=== PATIENT | male | born 1945 | race Caucasian/White ===

== ENCOUNTER 2016-11-28 12:06 | Inpatient (IN) ==
[2016-11-28] MEDS ORDERED: Acetaminophen 325 MG TABLET PO PRN (14:58)
[2016-11-28] MEDS ORDERED: *HR* Promethazine 25 MG/ML VIAL IVP PRN (15:21)
[2016-11-28] MEDS ORDERED: Ondansetron 4 MG/2 ML VIAL IVP PRN (15:21)
[2016-11-28] MEDS ORDERED: *HR* OxyCODONE/APAP 5/325 TABLET PO PRN (15:21)
[2016-11-28] MEDS ORDERED: 0.9 % Sodium Chloride 1,000 ML IVC SCH (15:30)
[2016-11-28] MEDS ORDERED: Pantoprazole 40 MG VIAL IVP SCH (15:30)
--- NOTE | 2016-11-28 16:21 | General Surg History&Physical ---
<Josie Almodovar - Last Filed: 11/28/16 17:10> Date of Encounter: 11/28/16 Time of Encounter: 16:19 Assessment and Plan (1) Ascending cholangitis Current Visit: Yes Status: Acute Patient presents with signs and symptoms of acute cholecystitis with ascending cholangitis with clinical findings correlated to imaging. On exam: Patient is diaphoretic and restless in the bed. Abdomen is diffusely tender to palpation. Laboratory results from [facility] reveal leukocytosis with left shift. Elevated liver function enzymes suggested of liver and biliary injury. Total bilirubin of 2.6 Direct bilirubin 1.9 Indirect bilirubin 0.7 AST 624 ALT [address] scan of the abdomen 11/28/16 Impression: Cholecystitis with at least moderate distention of the gallbladder. The pericholecystic right upper quadrant mesenteric fat is ill defined. Correlation for acute Cholecystitis recommended. Nothing by mouth IV fluids at [75] mL per hour IV antibiotics Mefoxin 2 g every 8 hours Supportive care and pain control Incentive spirometer every 1 hour while awake PPI therapy: Patoprazole 40 mg IVP daily Preoperative protocol please give patient's metoprolol by mouth at 6 AM. Laproscopic cholecystectomy with ineraoperative cholangiogram and possible open common bile duct exploration for common bile duct stone in the morning. Risks, benefits, alternatives, expected outcomes reviewed with the patient is agreement to proceed to the operating room with for Laproscopic cholecystectomy with ineraoperative cholangiogram and possible open common bile duct exploration for common bile duct stone in the next 24 hours. Verbal and written consent was obtained. Consent Form was signed, dated and placed in the chart. The assessment and plan as outlined above was discussed with the patient and/or family members who expressed understanding and agreement. All questions were answered. (2) Acute cholecystitis Current Visit: Yes Status: Acute The assessment and plan as outlined above was discussed with the patient and/or family members who expressed understanding and agreement. All questions were answered. (3) Elevated liver enzymes Current Visit: Yes Status: Acute The assessment and plan as outlined above was discussed with the patient and/or family members who expressed understanding and agreement. All questions were answered. History of Present Illness Chief complaint: abdominal pain HPI: Mr. 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 On arrival to the floor patient had a temperature of 102.1. Acetaminophen 650 was given for fever. Patient describes sudden onset of sharp stabbing pain that woke him from sleep around 1:30 AM this morning. Pain is described as midepigastric with radiation to the periumbilical region and persisted as cramping with intermittent sharp stabbing pains at 7-9 out of 10 pain. Patient tried changing positions sitting up in order to alleviate his symptoms however they persisted. Patient then tried drinking a few sips of coffee however he states that he developed a coffee and food aversion stating no appetite. Associated symptoms include bloating, gas, belching, nausea, vomiting 2-3 times nonbloody nonbilious, fever , chills and shaking. Patient states no previous episodes in the past. Last bowel movement occurred at 2 AM this morning and is described as normal stool bulk and volume for patient without blood or pus. Last meal: 5:55 PM yesterday evening Past surgical histories: Gastric bypass 1993 Right ankle ORIF 2016 Vasectomy 1982 History with anesthesia is that after surgical intervention when patient is recovering postoperatively he develops episodes of hypotension for which he states he requires caffeine just to increase his heart rate a little bit. Social history: Patient is . 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 Patient was in the [employer] and was stationed in [employer]. Past Med Surg Social Fam HX - Past Medical History Medical history: asthma, diabetes, GERD, hyperlipidemia, hypertension, kidney stones, other Psychiatric history: no psych history - Past Surgical History Surgical History: other - Social History Smoking Status: Never smoker Smokeless Tobacco Status: No Alcohol use: rarely Drug use: none - Family History Mother Name: Angelina Marks Age: 55 Family Member Ethnicity: Non- Living Status: Age at : 55 Cause of : Cancer Hx Family Cardiac Disorders: Yes Hx Family Respiratory Disorders: Yes Hx Family Cancer: Yes Hx Family GI Disorders: No Hx Family Genitourinary Disorders: Yes Hx Family Endocrine Disorder: No Hx Family Musculoskeletal Disorders: No Hx Family Neuromuscular Disorders: No Hx Family Neurologic Disorders: No Hx Family HEENT Disorders: No Hx Family Autoimmune Disorders: No Hx Family Reproductive Disorders: No Hx Family Psychosocial Disorders: No Hx Family Medical Disorders: No Medications and Allergies Albuterol Sulfate [Albuterol Inhaler] 2 puff PO Q4H PRN 05/27/16 [History] Doxazosin Mesylate 8 mg PO HS 05/27/16 [History] Exenatide [Byetta] 5 mcg SQ BID 05/27/16 [History] Furosemide 80 mg PO DAILY 05/27/16 [History] Losartan Potassium 100 mg PO DAILY 05/27/16 [History] Metformin HCl [Fortamet] 1,000 mg PO BID 05/27/16 [History] Metoprolol Succinate [Toprol Xl] 100 mg PO BID 05/27/16 [History] NIFEdipine [Nifedipine Xl] 30 mg PO BID 05/27/16 [History] Potassium Chloride [K-Tab ER] 20 meq PO BID 05/27/16 [History] Pravastatin Sodium [Pravachol] 40 mg PO HS 05/27/16 [History] Tamsulosin [Flomax] 0.4 mg PO HS 05/27/16 [History] Tizanidine HCl 4 mg PO BID PRN 05/27/16 [History] cloNIDine HCl [Clonidine HCl] 0.1 mg PO BID 05/27/16 [History] glipiZIDE [Glipizide] 10 mg PO BID 05/27/16 [History] Allergies morphine Allergy (Verified 05/27/16 14:08) Itching Penicillins Adverse Reaction (Verified 05/27/16 14:08) Rash Review of Systems All systems PM: A 10-system review of systems was performed and is negative for pertinent findings except as documented above in the HPI. - Constitutional anorexia, chills, excessive sweating, fatigue, fever(s), lethargy, snoring, stops breathing during sleep, no headache(s) - EENT Nose, mouth and throat: no dysphagia, no epistaxis, no throat swelling, no tongue swelling - Cardiovascular diaphoresis, no chest pain, no claudication, no dyspnea, no palpitations - Respiratory wheezing (Asthma and allergies ), no dyspnea, no hemoptysis - Gastrointestinal abdominal pain, belching, bloating, cramping, nausea, vomiting, no coffee ground emesis, no constipation, no diarrhea, no dyspepsia, no dysphagia, no heartburn, no hematemesis, no hematochezia, no melena - Genitourinary urinary hesitancy - Integumentary no pruritus, no rash, no sores, no unusual bruising, no wounds, no jaundice - Neurological no confusion, no disequilibrium, no dizziness, no numbness, no syncope General Surgery Exam Initial Vital Signs Temp Pulse Resp BP Pulse Ox 101.0 F H 91 18 145/73 92 11/28/16 15:08 11/28/16 15:08 11/28/16 15:08 11/28/16 15:08 11/28/16 15:08 - General physical appearance well developed, well nourished, no distress, moderate pain, obese - Eyes PERRL, normal ocular movement - ENT normal mucosa, atraumatic, normocephalic, CN 2-12 grossly intact - Neck trachea midline - Respiratory normal respiratory effort, clear to auscultation - Cardiovascular Cardiovascular exam: Present: RRR, no murmurs/rubs/gallops. Absent: JVD - Abdomen Abdomen general surgery: Present: bowel sounds present, soft, tender - Integumentary Integumentary general surgery: Present: warm and dry, no abnormal pigmentation, diaphoresis - Neurologic Present: CN 2-12 grossly intact, normal coordination, normal sensation - Musculoskeletal Present: normal gait, normal posture - Psychiatric Psychiatric general surgery: Present: A&Ox3, speech is normal, memory intact Results - Labs All other labs normal. - Imaging CT scan - abdomen: report reviewed, image reviewed CT scan - pelvis: report reviewed, image reviewed <Hussein Lowery - Last Filed: 11/29/16 06:32> Date of Encounter: 11/28/16 History of Present Illness HPI: Mr. Marks is a 71 year old male Review of Systems All systems PM: A 10-system review of systems was performed and is negative for pertinent findings except as documented above in the HPI. General Surgery Exam Initial Vital Signs Temp Pulse Resp BP Pulse Ox 101.0 F H 91 18 145/73 92 11/28/16 15:08 11/28/16 15:08 11/28/16 15:08 11/28/16 15:08 11/28/16 15:08 Results - Labs All other labs normal. - Attending Attestation I examined this patient and my medical decision-making was reviewed with the [employer]INE SETTER/PA/Advanced Practice Nurse/Resident Physician. I agree with the documented findings, disposition and treatment plan as described except to the extent set forth below. The patient is seen and evaluated in the emergency department. He has elevated liver function tests, leukocytosis, and jaundice. Ultrasound demonstrates cholelithiasis. Clinical presentation is consistent with a sending cholangitis. He has previously had gastric bypass surgery and is not a candidate ERCP. We will plan antibiotic therapy and treatment of his febrile episodes followed by laparoscopic cholecystectomy and intraoperative cholangiogram. If the cholangiogram demonstrated common bile duct stones open common bile duct exploration will be indicated. Hussein Lowery MD FACS
[2016-11-28] MEDS ORDERED: Dextrose Gel 15 GM PO PRN ×2 (16:31)
[2016-11-28] MEDS ORDERED: D5% in Water 1,000 ML IVC PRN (16:31)
[2016-11-28] MEDS ORDERED: *HR* Dextrose 50 % in Water (Syg) 50 ML SYRINGE IVP PRN (16:31)
[2016-11-28] MEDS ORDERED: Fluticasone Propionate Nasal 50 MCG/SPRAY BOTTLE NS SCH (16:45)
[2016-11-28] MEDS ORDERED: *HR* HYDROmorphone 2 MG/ML SYRINGE IVP PRN (17:31)
[2016-11-28] MEDS: cefOXitin 2,000 MG in D5% in Water (Mini-Bag+) 100 ML IVPB SCH (17:44)
[2016-11-28] MEDS ORDERED: Piperacillin/Tazobactam 3.375 GM in D5% in Water (Mini-Bag+) 100 ML IVPB SCH (18:00)
[2016-11-29] MEDS: cefOXitin 2,000 MG in D5% in Water (Mini-Bag+) 100 ML IVPB SCH ×3 (00:10→23:12)
[2016-11-29] MEDS ORDERED: Metoprolol 100 MG TABLET PO ONE (06:00)
[2016-11-29 06:50] LABS: Alanine Aminotransferase 238 Units/L (0-55); Albumin/Globulin Ratio 0.9 (1.1-2.2); Alkaline Phosphatase 203 Units/L (38-126); Aspartate Amino Transferase 194 Units/L (5-34); BUN/Creatinine Ratio 13 (6-26); Bilirubin,Direct 3.3 mg/dL (0.0-0.5); Bilirubin,Indirect 1.2 mg/dL (0.0-1.2); Bilirubin,Total 4.5 mg/dL (0.2-1.2); Blood Urea Nitrogen 13 mg/dL (8-26); Calcium 8.7 mg/dL (8.6-10.8); Carbon Dioxide 25 mEq/L (19-29); Chloride 106 mEq/L (98-109); Globulin 3.4 g/dL (2.4-3.5); Glucose 142 mg/dL (70-99); Osmolality,Calculated 293 (280-300); Potassium 3.3 mEq/L (3.5-4.5); Sodium 140 mEq/L (136-145); Total Protein 6.4 g/dL (6.0-8.3); eGFR For African Americans > 60 (> 60); eGFR For Non-African Americans > 60 (> 60)
[2016-11-29 07:06] LABS: Basophils % 0.1 %; Eosinophils # 0.1 K/mcL (0.0-0.6); Eosinophils % 0.6 %; Hematocrit 37.9 % (37.5-50.1); Hemoglobin 12.2 g/dL (12.9-16.9); Immature Granulocytes % 0.4 % (0-4); Lymphocytes # 1.2 K/mcL (0.6-4.6); Lymphocytes % 9.1 %; Mean Corpuscular HGB Conc 32.2 g/dL (31.6-35.5); Mean Corpuscular Hemoglobin 28.2 pg (28.0-33.3); Mean Corpuscular Volume 87.7 fL (83.0-100.0); Mean Platelet Volume 10.3 fL (9.4-12.4); Monocytes # 1.1 K/mcL (0.0-1.3); Monocytes % 8.2 %; Neutrophils # 10.8 K/mcL (1.6-8.9); Platelet Count 233 K/mcL (140-400); Red Blood Count 4.32 M/mcL (4.19-5.50); Red Cell Distribution Width 13.9 % (11.5-14.5); Segmented Neutrophils % 81.6 %
[2016-11-29] MEDS ORDERED: *HR* Phenylephrine 10 MG/ML VIAL ONE (07:22)
[2016-11-29] MEDS ORDERED: *HR* Succinylcholine 200 MG/10 ML VIAL IVP ONE ×2 (07:22→07:50)
[2016-11-29] MEDS ORDERED: Propofol 500 MG/50 ML INFUS..BTL ONE (07:22)
[2016-11-29] MEDS ORDERED: Lidocaine -MPF 2% 2 ML VIAL ONE (07:22)
[2016-11-29] MEDS ORDERED: *HR* FentaNYL (PF) 100 MCG/2 ML VIAL ONE (07:26)
[2016-11-29] MEDS ORDERED: Insulin LISPRO 300 UNITS/3 ML VIAL SQ SCH (07:30)
--- NOTE | 2016-11-29 07:33 | Anesthesia Evaluation PreOp ---
Date of Encounter: 11/29/16 Time of Encounter: 07:31 - Past History Planned Operation: Lap dave with cholangiogram Cardiac History: HTN, Hyperlipidemia Pulmonary History: Asthma, COPD, LEX Dx Other Medical History: Renal (renal stones), Diabetes Type II, GERD Alcohol Use: rarely Drug use: none Medications and Allergies Albuterol Sulfate [Albuterol Inhaler] 2 puff PO Q4H PRN 05/27/16 [History] Doxazosin Mesylate 8 mg PO HS 05/27/16 [History] Exenatide [Byetta] 5 mcg SQ BID 05/27/16 [History] Furosemide 80 mg PO DAILY 05/27/16 [History] Losartan Potassium 100 mg PO DAILY 05/27/16 [History] Metformin HCl [Fortamet] 1,000 mg PO BID 05/27/16 [History] Metoprolol Succinate [Toprol Xl] 100 mg PO BID 05/27/16 [History] NIFEdipine [Nifedipine Xl] 30 mg PO BID 05/27/16 [History] Potassium Chloride [K-Tab ER] 20 meq PO BID 05/27/16 [History] Pravastatin Sodium [Pravachol] 40 mg PO HS 05/27/16 [History] Tamsulosin [Flomax] 0.4 mg PO HS 05/27/16 [History] Tizanidine HCl 4 mg PO BID PRN 05/27/16 [History] cloNIDine HCl [Clonidine HCl] 0.1 mg PO BID 05/27/16 [History] glipiZIDE [Glipizide] 10 mg PO BID 05/27/16 [History] Allergies morphine Allergy (Verified 05/27/16 14:08) Itching Penicillins Adverse Reaction (Verified 05/27/16 14:08) Rash Anesthesia Results - Labs 11/29/16 05:41 11/29/16 05:41 - Imaging EKG: report reviewed, image reviewed (SR w first degree AVB, inferior DE probably old) Additional studies: TTE: LVEF 65% mild AR mild MR Anesthesia Exam Last Vital Signs Temp 97.8 F 11/29/16 04:04 Pulse 67 11/29/16 04:04 Resp 14 11/29/16 04:04 BP 159/79 11/29/16 04:04 Pulse Ox 93 11/29/16 04:04 Weight: 116 kg NPO (# of Hours): >> 8 hrs - HEENT Pupil (Motor): Pupils equal, EOMI Mallampati: I Teeth: Normal Oral Opening: Greater than 3 - MANUFACTURING MECHANIC LOC: Oriented MANUFACTURING MECHANIC Motor: Normal RUE, Normal LUE, Normal RLE, Normal LLE, Normal Face - Cardiac Rhythm: Regular Murmur: None - Pulmonary Breath Sounds: bilateral Clear Respiratory Effort: Symmetrical Anesthesia Assess/Plan ASA Score: 3 Modified Ruth Scale for Level of Consciousness: Cooperative, oriented, and tranquil Anesthetic Plan: General Monitoring Plan: Standard Monitors Recovery Plan: PACU
[2016-11-29] MEDS ORDERED: CefOXitin 2,000 MG VIAL IVPB ONE ×2 (07:50→08:57)
[2016-11-29] MEDS ORDERED: *HR* Rocuronium Bromide 50 MG/5 ML VIAL ONE (08:09)
[2016-11-29] MEDS ORDERED: EPHEDrine 50 MG/ML VIAL ONE (08:15)
[2016-11-29] MEDS ORDERED: Neostigmine Methylsulfate 3 MG/3 ML SYRINGE ONE (08:16)
[2016-11-29] MEDS ORDERED: Ondansetron 4 MG/2 ML VIAL ONE (08:23)
[2016-11-29] MEDS ORDERED: Dexamethasone 4 MG/ML VIAL ONE (08:23)
[2016-11-29] MEDS ORDERED: Ketorolac 30 MG/ML VIAL ONE (08:26)
[2016-11-29] MEDS ORDERED: *HR* Promethazine 25 MG/ML VIAL IVP PRN ×2 (08:29→10:33)
[2016-11-29] MEDS ORDERED: *HR* HYDROmorphone 2 MG/ML SYRINGE ONE ×2 (08:45→10:04)
[2016-11-29] MEDS ORDERED: Piperacillin/Tazobactam 3.375 GM in D5% in Water (Mini-Bag+) 100 ML IVPB ONE (09:00)
--- NOTE | 2016-11-29 09:55 | Operative Note ---
Date of procedure: 11/29/16 Pre-op diagnosis: Ascending cholangitis, choledocholithiasis, cholelithiasis Post-op diagnosis: same Procedure: #1 opened, bile duct exploration #2 laparoscopic cholecystectomy and intraoperative cholangiogram Anesthesia: ONESIMOA Surgeon: Hussein Lowery Estimated blood loss (cc): 50 Specimen: #1 gallbladder and contents #2 choledocholithiasis Condition: stable Disposition: PACU Procedure in Detail: Operative procedure after informed consent and appropriate patient identification timeout the patient's take major operating suite and placed supine position given adequate general endotracheal anesthesia the abdomen is prepped and draped in sterile fashion utilizing ChloraPrep standard draping techniques timeout was taken patient is identified. I made a vertical midline incision below the umbilicus dissected down to level of fascia there are 2 traction stitches placed in the abdominal cavity was entered visually. A Flores trocar was placed in the abdomen and the abdomen was insufflated to 15 mmHg pressure CO2 the gallbladder was visualized. A placement 11 port in the subxiphoid area and 25 mm ports in the subcostal area. The gallbladder was grasped and elevated. A variety of blunt and sharp dissection techniques were used to isolate the cystic duct and cystic artery. The cystic artery was controlled with 2 surgical clips proximally and one distally and it was divided I placed a surgical clip on the neck the gallbladder and obtained an intraoperative cholangiogram using 10 mL of Isovue. Intraoperative cholangiogram demonstrated no flow into the duodenum. On magnified views I could see the shoulder of an impacted stone. Because of his previous gastric bypass surgery ERCP is not an option. We made a decision to perform open common bile duct exploration The cholangiocatheter was removed and the cystic duct was controlled with 2 surgical clips proximally and was divided the gallbladder was removed from the gallbladder fossae using electrocautery. Once the gallbladder was removed the patient was converted to open. I made a subcostal incision and entered the abdomen. The gallbladder was removed and I dissected the side of the common bile duct. I then performed, maneuver. Once [place] maneuver was performed and I could get my hand behind the head of the pancreas I opened the common bile duct #11 blade and extended this with Campos scissors. I was unable to reach the ampulla with the stone forceps. I used a small dilator and this passed easily into the duodenum. When I morris the dilator back a stone was recovered from the distal duct. This is consistent with an impacted stone. The next size Dilator was used and this passed easily into the duodenum. There were no other stones. I fashioned a #16 T-tube which was placed in the common bile duct. The choledochotomy was then closed with interrupted 5-0 Prolene. This gave an excellent technical result. The T-tube was exited from the right lateral abdomen and I placed a #10 Onofre-Fong drain. The abdomen was closed with looped 0 PDS on the posterior fascia and looped 0 PDS on the anterior fascia. Skin was closed with interrupted Vicryl and skin clips. He tolerated the procedure well.
[2016-11-29] MEDS: *HR* HYDROmorphone (PF) 1 MG/ML SYRINGE IVP PRN ×4 (10:05→10:20)
[2016-11-29] MEDS ORDERED: Ondansetron 4 MG/2 ML VIAL IVP PRN (10:33)
[2016-11-29] MEDS ORDERED: Dextrose Gel 15 GM PO PRN ×2 (10:33)
[2016-11-29] MEDS ORDERED: D5% in Water 1,000 ML IVC PRN (10:33)
[2016-11-29] MEDS ORDERED: *HR* Dextrose 50 % in Water (Syg) 50 ML SYRINGE IVP PRN (10:33)
[2016-11-29] MEDS ORDERED: Acetaminophen 325 MG TABLET PO PRN (10:33)
--- NOTE | 2016-11-29 10:33 | Anesthesia Evaluation Post Op ---
Date of Encounter: 11/29/16 Time of Encounter: 10:33 - Vital Signs Vital Signs: Last Vital Signs Temp 99.6 F 11/29/16 10:30 Pulse 63 11/29/16 10:30 Resp 16 11/29/16 10:30 BP 137/67 11/29/16 10:30 Pulse Ox 97 11/29/16 10:30 - Lungs Lungs: Clear Ascult./Percussion - Airway Airway: Non-obstructed - Cardiovascular Regular Rate - Mental Status Mental Status: Alert & Oriented, Answers Appropriately - Pain Pain Scale: 3 - Nausea Vomiting Nausea Vomiting: Not Present - Hydration Hydration: NPO - Discharge PostOp Status: Transfer Patient to floor
[2016-11-29] MEDS: Insulin LISPRO 300 UNITS/3 ML VIAL SQ SCH ×2 (12:20→17:55)
[2016-11-29] MEDS: 0.9 % Sodium Chloride 1,000 ML IVC SCH (12:21)
[2016-11-29] MEDS: *HR* HYDROmorphone 2 MG/ML SYRINGE IVP PRN ×2 (17:46→23:11)
[2016-11-29] MEDS: *HR* Heparin 5,000 UNIT/ML VIAL SQ SCH (17:47)
[2016-11-29] MEDS ORDERED: *HR* Heparin 5,000 UNIT/ML VIAL SQ SCH (18:00)
[2016-11-29] MEDS: *HR* OxyCODONE/APAP 5/325 TABLET PO PRN (20:36)
[2016-11-30] MEDS ORDERED: *HR* Metoprolol 5 MG/5 ML VIAL IVP ONE (04:23)
[2016-11-30] MEDS: *HR* HYDROmorphone 2 MG/ML SYRINGE IVP PRN ×2 (04:26→20:52)
[2016-11-30] MEDS: *HR* Heparin 5,000 UNIT/ML VIAL SQ SCH ×2 (04:26→17:08)
[2016-11-30 06:02] LABS: Basophils % 0.1 %; Eosinophils % 0.2 %; Hematocrit 36.2 % (37.5-50.1); Hemoglobin 11.6 g/dL (12.9-16.9); Immature Granulocytes % 0.5 % (0-4); Lymphocytes # 1.1 K/mcL (0.6-4.6); Lymphocytes % 8.6 %; Mean Corpuscular Hemoglobin 28.5 pg (28.0-33.3); Mean Corpuscular Volume 88.9 fL (83.0-100.0); Mean Platelet Volume 10.9 fL (9.4-12.4); Monocytes # 0.9 K/mcL (0.0-1.3); Monocytes % 7.2 %; Neutrophils # 10.5 K/mcL (1.6-8.9); Platelet Count 208 K/mcL (140-400); Red Blood Count 4.07 M/mcL (4.19-5.50); Red Cell Distribution Width 14.6 % (11.5-14.5); Segmented Neutrophils % 83.4 %
[2016-11-30 06:13] LABS: BUN/Creatinine Ratio 14 (6-26); Blood Urea Nitrogen 14 mg/dL (8-26); Carbon Dioxide 23 mEq/L (19-29); Chloride 107 mEq/L (98-109); Glucose 144 mg/dL (70-99); Osmolality,Calculated 295 (280-300); Sodium 141 mEq/L (136-145); eGFR For African Americans > 60 (> 60); eGFR For Non-African Americans > 60 (> 60)
[2016-11-30 06:17] LABS: Potassium 3.6 mEq/L (3.5-4.5)
[2016-11-30] MEDS: *HR* OxyCODONE/APAP 5/325 TABLET PO PRN ×4 (08:03→23:58)
[2016-11-30] MEDS: cefOXitin 2,000 MG in D5% in Water (Mini-Bag+) 100 ML IVPB SCH ×3 (08:03→23:59)
[2016-11-30] MEDS: Pantoprazole 40 MG VIAL IVP SCH (08:03)
[2016-11-30] MEDS: Insulin LISPRO 300 UNITS/3 ML VIAL SQ SCH ×3 (08:04→17:09)
[2016-11-30] MEDS: 0.9 % Sodium Chloride 1,000 ML IVC SCH ×2 (08:04→20:53)
[2016-11-30] MEDS: Fluticasone Propionate Nasal 50 MCG/SPRAY BOTTLE NS SCH (08:05)
--- NOTE | 2016-11-30 08:31 | General Surgery Progress Note ---
Date of Encounter: 11/30/16 Time of Encounter: 06:50 Objective Vital Signs - Last 8 Hours Temp Pulse Resp BP Pulse Ox 11/30/16 06:39 98.1 F 83 18 169/79 92 11/30/16 05:15 166/80 11/30/16 04:17 98.3 F 78 14 184/42 93 Intake and Output 11/29/16 11/30/16 11/30/16 23:59 07:59 15:59 Intake Total 225 / 225 1000 / 1000 Output Total 405 / 405 525 / 525 Balance -180 / -180 475 / 475 Intake: IV Fluids 200 / 200 1000 / 1000 0.9 % Sodium Chloride 1, 1000 / 1000 000 ML @ 75 mls/hr IVC . [id number] [facility] Rx#: [id number] Mefoxin 2,000 MG In 200 / 200 Dextrose 5% (Minibag+) 100 ML 100 ML @ 200 mls/ hr IVPB Q8HR [facility] Rx#: [id number] Oral 25 / 25 0 / 0 Output: Urine 250 / 250 450 / 450 Wound Drainage 155 / 155 75 / 75 Right Lower Abdomen 110 / 110 Right Upper Abdomen 45 / 45 75 / 75 Other: Weight 115.666 kg Blood Glucose* 141 133 136 Patient Weight 11/30/16 23:59 Weight 115.666 kg - Labs 11/30/16 04:42 11/30/16 04:42 Diabetes panel 11/30/16 Range/Units 04:42 Sodium 141 (136-145) mEq/L Potassium 3.6 (3.5-4.5) mEq/L Chloride 107 (98-109) mEq/L Carbon Dioxide 23 (19-29) mEq/L BUN 14 (8-26) mg/dL Creatinine 1.01 (0.72-1.25) mg/dL Glucose 144 H (70-99) mg/dL Calcium 9.0 (8.6-10.8) mg/dL Calcium panel 11/30/16 Range/Units 04:42 Calcium 9.0 (8.6-10.8) mg/dL Pituitary panel 11/30/16 Range/Units 04:42 Sodium 141 (136-145) mEq/L Potassium 3.6 (3.5-4.5) mEq/L Chloride 107 (98-109) mEq/L Carbon Dioxide 23 (19-29) mEq/L BUN 14 (8-26) mg/dL Creatinine 1.01 (0.72-1.25) mg/dL Glucose 144 H (70-99) mg/dL Calcium 9.0 (8.6-10.8) mg/dL Adrenal panel 11/30/16 Range/Units 04:42 Sodium 141 (136-145) mEq/L Potassium 3.6 (3.5-4.5) mEq/L Chloride 107 (98-109) mEq/L Carbon Dioxide 23 (19-29) mEq/L BUN 14 (8-26) mg/dL Creatinine 1.01 (0.72-1.25) mg/dL Glucose 144 H (70-99) mg/dL Calcium 9.0 (8.6-10.8) mg/dL Consult Discharge Plan - Plan Referrals: NO,PCP [Primary Care Provider] -
[2016-11-30] MEDS: *HR* Metoprolol 5 MG/5 ML VIAL IVP PRN ×2 (12:51→19:01)
[2016-11-30] MEDS ORDERED: *HR* Metoprolol 5 MG/5 ML VIAL IVP PRN ×2 (16:50)
[2016-12-01] MEDS: *HR* OxyCODONE/APAP 5/325 TABLET PO PRN ×4 (04:27→22:06)
[2016-12-01] MEDS: *HR* Metoprolol 5 MG/5 ML VIAL IVP PRN ×2 (04:28→15:57)
[2016-12-01] MEDS: *HR* Heparin 5,000 UNIT/ML VIAL SQ SCH ×2 (04:30→17:21)
[2016-12-01 06:10] LABS: Basophils % 0.1 %; Eosinophils # 0.3 K/mcL (0.0-0.6); Eosinophils % 3.1 %; Hematocrit 34.1 % (37.5-50.1); Immature Granulocytes % 0.4 % (0-4); Lymphocytes # 1.1 K/mcL (0.6-4.6); Lymphocytes % 10.7 %; Mean Corpuscular HGB Conc 32.3 g/dL (31.6-35.5); Mean Corpuscular Hemoglobin 28.2 pg (28.0-33.3); Mean Corpuscular Volume 87.4 fL (83.0-100.0); Mean Platelet Volume 10.5 fL (9.4-12.4); Monocytes # 1.1 K/mcL (0.0-1.3); Monocytes % 10.4 %; Neutrophils # 7.7 K/mcL (1.6-8.9); Platelet Count 221 K/mcL (140-400); Red Cell Distribution Width 14.3 % (11.5-14.5); Segmented Neutrophils % 75.3 %
[2016-12-01 06:25] LABS: BUN/Creatinine Ratio 9 (6-26); Blood Urea Nitrogen 8 mg/dL (8-26); Calcium 9.1 mg/dL (8.6-10.8); Carbon Dioxide 26 mEq/L (19-29); Chloride 106 mEq/L (98-109); Glucose 145 mg/dL (70-99); Osmolality,Calculated 291 (280-300); Potassium 3.3 mEq/L (3.5-4.5); Sodium 140 mEq/L (136-145); eGFR For African Americans > 60 (> 60); eGFR For Non-African Americans > 60 (> 60)
[2016-12-01] MEDS: Insulin LISPRO 300 UNITS/3 ML VIAL SQ SCH ×3 (08:16→17:21)
[2016-12-01 08:17] LABS: Albumin 2.8 g/dL (3.5-5.0); Albumin/Globulin Ratio 0.7 (1.1-2.2); Bilirubin,Indirect 0.8 mg/dL (0.0-1.2); Globulin 4.3 g/dL (2.4-3.5); Total Protein 7.1 g/dL (6.0-8.3)
[2016-12-01] MEDS: cefOXitin 2,000 MG in D5% in Water (Mini-Bag+) 100 ML IVPB SCH ×3 (08:17→23:08)
[2016-12-01 08:18] LABS: Bilirubin,Direct 1.4 mg/dL (0.0-0.5); Bilirubin,Total 2.2 mg/dL (0.2-1.2)
[2016-12-01] MEDS: Fluticasone Propionate Nasal 50 MCG/SPRAY BOTTLE NS SCH (08:19)
[2016-12-01] MEDS: Pantoprazole 40 MG VIAL IVP SCH (08:19)
--- NOTE | 2016-12-01 08:54 | General Surgery Progress Note ---
Date of Encounter: 12/01/16 Time of Encounter: 08:20 - Assessment and Plan (1) Ascending cholangitis Current Visit: Yes Status: Acute The patient is doing quite well after, after common bile duct exploration. He has had improvement of his liver function tests. We will plan to clamp his T- tube later today. Anticipate discharge tomorrow. Subjective Narrative: The patient has no complaints today and is feeling very well. He is much less clinically jaundice. His bilirubin today is 2.2 down from 4.5. His white blood cell count is normal. There is no evidence of clinically worsening ascending cholangitis. We will plan on clamping his T-tube later today to see if this drains normally. Continue his antibiotics for treatment of ascending cholangitis. Overall course is excellent Objective Vital Signs - Last 8 Hours Temp Pulse Resp BP Pulse Ox 12/01/16 08:27 95 12/01/16 07:47 99.0 F 62 18 195/79 95 12/01/16 04:08 98.4 F 67 14 197/91 94 12/01/16 01:15 97.5 F L 114 177/85 Intake and Output 11/30/16 12/01/16 12/01/16 23:59 07:59 15:59 Intake Total 2940 / 2940 992 / 992 Output Total 1900 / 1900 2075 / 2075 Balance 1040 / 1040 -1083 / -1083 Intake: IV Fluids 1100 / 1100 592 / 592 0.9 % Sodium Chloride 1, 1000 / 1000 492 / 492 000 ML @ 75 mls/hr IVC . [id number] [facility] Rx#: [id number] Mefoxin 2,000 MG In 100 / 100 100 / 100 Dextrose 5% (Minibag+) 100 ML 100 ML @ 200 mls/ hr IVPB Q8HR [facility] Rx#: [id number] Oral 1840 / 1840 400 / 400 Output: Urine 1800 / 1800 1775 / 1775 Wound Drainage 100 / 100 300 / 300 Right Lower Abdomen 80 / 80 210 / 210 Right Upper Abdomen 20 / 20 90 / 90 Other: Weight 115.666 kg Blood Glucose* 208 149 Patient Weight 12/01/16 23:59 Weight 115.666 kg - General physical appearance well developed, well nourished - Respiratory normal expansion, normal respiratory effort, clear to percussion, clear to auscultation - Cardiovascular Cardiovascular exam: Present: RRR, no murmurs/rubs/gallops - Abdomen Abdomen: Present: bowel sounds present, soft, non tender - Incision Incision: Present: clean and dry - Psychiatric oriented to time, oriented to person, oriented to place, speech is normal, memory intact - Labs 12/01/16 05:13 12/01/16 05:13 Diabetes panel 12/01/16 12/01/16 Range/Units 05:13 07:57 Sodium 140 (136-145) mEq/L Potassium 3.3 L (3.5-4.5) mEq/L Chloride 106 (98-109) mEq/L Carbon Dioxide 26 (19-29) mEq/L BUN 8 (8-26) mg/dL Creatinine 0.87 (0.72-1.25) mg/dL Glucose 145 H (70-99) mg/dL Calcium 9.1 (8.6-10.8) mg/dL AST 33 (5-34) Units/L ALT 105 H (0-55) Units/L Alkaline Phosphatase 173 H (38-126) Units/L Albumin 2.8 L (3.5-5.0) g/dL Calcium panel 12/01/16 12/01/16 Range/Units 05:13 07:57 Calcium 9.1 (8.6-10.8) mg/dL Albumin 2.8 L (3.5-5.0) g/dL Pituitary panel 12/01/16 Range/Units 05:13 Sodium 140 (136-145) mEq/L Potassium 3.3 L (3.5-4.5) mEq/L Chloride 106 (98-109) mEq/L Carbon Dioxide 26 (19-29) mEq/L BUN 8 (8-26) mg/dL Creatinine 0.87 (0.72-1.25) mg/dL Glucose 145 H (70-99) mg/dL Calcium 9.1 (8.6-10.8) mg/dL Adrenal panel 12/01/16 12/01/16 Range/Units 05:13 07:57 Sodium 140 (136-145) mEq/L Potassium 3.3 L (3.5-4.5) mEq/L Chloride 106 (98-109) mEq/L Carbon Dioxide 26 (19-29) mEq/L BUN 8 (8-26) mg/dL Creatinine 0.87 (0.72-1.25) mg/dL Glucose 145 H (70-99) mg/dL Calcium 9.1 (8.6-10.8) mg/dL Total Bilirubin 2.2 H D (0.2-1.2) mg/dL AST 33 (5-34) Units/L ALT 105 H (0-55) Units/L Alkaline Phosphatase 173 H (38-126) Units/L Albumin 2.8 L (3.5-5.0) g/dL Consult Discharge Plan - Plan Referrals: Tony Fernandez MD [Partnered Physician] -
[2016-12-01] MEDS ORDERED: tiZANidine 4 MG TABLET PO PRN (08:56)
[2016-12-01] MEDS: *HR* GlipiZIDE 5 MG TABLET PO SCH ×2 (09:57→21:59)
[2016-12-01] MEDS: *HR* Metformin 500 MG TABLET PO SCH ×2 (09:57→21:59)
[2016-12-01] MEDS: Furosemide 40 MG TABLET PO SCH (09:58)
[2016-12-01] MEDS: NIFEdipine XL (24 HR) 30 MG TAB.ER.24 PO SCH ×2 (09:58→21:59)
[2016-12-01] MEDS: (Exenatide [Byetta] 5 MCG) SQ SCH ×2 (09:58→22:00)
[2016-12-01] MEDS: cloNIDine HCl 0.1 MG TABLET PO SCH ×2 (09:58→21:59)
[2016-12-01] MEDS: Metoprolol XL (24 HR) Succ 50 MG TAB.ER.24H PO SCH ×2 (09:59→21:59)
[2016-12-01] MEDS: 0.9 % Sodium Chloride 1,000 ML IVC SCH (13:24)
[2016-12-02] MEDS: 0.9 % Sodium Chloride 1,000 ML IVC SCH ×2 (04:05→09:17)
[2016-12-02] MEDS: *HR* Heparin 5,000 UNIT/ML VIAL SQ SCH (06:17)
[2016-12-02 06:29] VITALS: BP 133/74
--- NOTE | 2016-12-02 07:11 | Discharge Summary ---
Date of Encounter: 12/02/16 Time of Encounter: 07:00 - Discharge Diagnosis (1) Ascending cholangitis Priority: Primary Status: Acute Comments: The patient had ascending cholangitis successfully treated with antibiotics and common bile duct exploration with removal of choledocholithiasis. (2) Obstructive jaundice Priority: Primary Status: Acute Comments: Secondary to choledocholithiasis. Treated with common bile duct exploration. - Discharge Medications Prescriptions: OxyCODONE/APAP 5/325 [Percocet 5/325 MG] 1 each PO Q4HR PRN 36 Days PRN Reason: Pain Home Medications: Albuterol Sulfate [Albuterol Inhaler] 2 puff PO Q4H PRN 05/27/16 [History] Doxazosin Mesylate 8 mg PO HS 05/27/16 [History] Exenatide [Byetta] 5 mcg SQ BID 05/27/16 [History] Furosemide 80 mg PO DAILY 05/27/16 [History] Losartan Potassium 100 mg PO DAILY 05/27/16 [History] Metformin HCl [Fortamet] 1,000 mg PO BID 05/27/16 [History] Metoprolol Succinate [Toprol Xl] 100 mg PO BID 05/27/16 [History] NIFEdipine [Nifedipine Xl] 30 mg PO BID 05/27/16 [History] Potassium Chloride [K-Tab ER] 20 meq PO BID 05/27/16 [History] Pravastatin Sodium [Pravachol] 40 mg PO HS 05/27/16 [History] Tamsulosin [Flomax] 0.4 mg PO HS 05/27/16 [History] Tizanidine HCl 4 mg PO BID PRN 05/27/16 [History] cloNIDine HCl [Clonidine HCl] 0.2 mg PO BID 05/27/16 [History] glipiZIDE [Glipizide] 10 mg PO BID 05/27/16 [History] Omeprazole [PriLOSEC] 20 mg PO DAILY 11/29/16 [History] OxyCODONE/APAP 5/325 [Percocet 5/325 MG] 1 each PO Q4HR PRN 36 Days 12/02/16 [Rx ] Allergies/Adverse Reactions: Allergies morphine Allergy (Verified 05/27/16 14:08) Itching Penicillins Allergy (Verified 11/29/16 12:16) Rash General Surgery Exam Initial Vital Signs Temp Pulse Resp BP Pulse Ox 101.0 F H 91 18 145/73 92 11/28/16 15:08 11/28/16 15:08 11/28/16 15:08 11/28/16 15:08 11/28/16 15:08 - General physical appearance well developed, well nourished, no distress - Respiratory normal expansion, normal respiratory effort, clear to percussion, clear to auscultation - Cardiovascular Cardiovascular exam: Present: RRR, no murmurs/rubs/gallops - Abdomen Abdomen general surgery: Present: bowel sounds present, soft, non tender - Incision Incision: Present: clean and dry - Neurologic Present: CN 2-12 grossly intact, normal coordination, normal sensation - Psychiatric Psychiatric general surgery: Present: appropriate, oriented to person, oriented to place, oriented to time, speech is normal, memory intact Date of admission: 11/29/16 06:51 Primary care physician: PCP NO Discharging clinician: Hussein Lowery Anticipated date of discharge: 12/02/16 - Patient Status Disposition: Home, Self-Care Condition: Good Functional capacity at discharge: independent ambulation Overall status at discharge: patient is progressing back to baseline - Discharge Instructions Follow Up With: Tony eFrnandez MD [Partnered Physician] - Hussein Lowery MD [Partnered Physician] - - Diet and Activity Activity: increase activity as tolerated Diet: advance to your usual diet - Hospital Course Hospital course: Mr. Marks is a 71 year old male Who presented with ascending cholangitis and obstructive jaundice. 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 He underwent laparoscopic cholecystectomy and intraoperative cholangiogram. The cholangiogram demonstrated no flow into the duodenum findings were consistent with choledocholithiasis. The patient underwent open common bile duct exploration due to previous Rowena-en-Y gastric bypass. He underwent formal common bile duct exploration and to common bile duct stones were removed. He responded very well to antibiotic therapy and drainage of the biliary system and is now ready for discharge. - Time Spent with Patient Total time spent providing and/or coordinating discharge services: Less than 30 minutes Specific discharge activities: Bile bag can be removed in the T-tube clamped. Maintain the Onofre-Fong drain and T-tube. Do not remove.. If you develop spiking temperatures or abdominal pain attached the clean bile bag and unclamp the T-tube and contact the pacing system to notify the physician on-call for Dr. Lowery Procedures and tests throughout hospitalization: Laparoscopic cholecystectomy, cholangiogram. Open common bile duct exploration with T-tube placement Labs on day of discharge: Labs from last 24 hours 12/01/16 12/01/16 12/01/16 20:00 16:30 12:26 POC Glucose 188 H 166 H 160 H Total Bilirubin Direct Bilirubin Indirect Bilirubin AST ALT Alkaline Phosphatase Serum Total Protein Albumin Globulin Albumin/Globulin Ratio 12/01/16 12/01/16 11/30/16 07:57 07:41 16:45 POC Glucose 149 H 152 H Total Bilirubin 2.2 H D Direct Bilirubin 1.4 H Indirect Bilirubin 0.8 AST 33 ALT 105 H Alkaline Phosphatase 173 H Serum Total Protein 7.1 Albumin 2.8 L Globulin 4.3 H Albumin/Globulin Ratio 0.7 L - Impressions ITS Impressions Cholangiogram,Operative 11/29/16 00:00 IMPRESSION: Curvilinear contrast inferior to the opacified segment of the CBD, raising the possibility for leak. Findings were discussed with nurse Lang in the OR for Dr. Hussein Lowery at 8:58 am on 11/29/2016. D/ / 11/29/2016 08:59:16 Yanelis Ho MD / earhector Interpreting Provider: Yanelis Ho MD
[2016-12-02] MEDS: Insulin LISPRO 300 UNITS/3 ML VIAL SQ SCH (08:54)
[2016-12-02] MEDS: cefOXitin 2,000 MG in D5% in Water (Mini-Bag+) 100 ML IVPB SCH (08:57)
[2016-12-02] MEDS: Furosemide 40 MG TABLET PO SCH (09:17)
[2016-12-02] MEDS: NIFEdipine XL (24 HR) 30 MG TAB.ER.24 PO SCH (09:18)
[2016-12-02] MEDS: *HR* GlipiZIDE 5 MG TABLET PO SCH (09:18)
[2016-12-02] MEDS: cloNIDine HCl 0.1 MG TABLET PO SCH (09:18)
[2016-12-02] MEDS: Metoprolol XL (24 HR) Succ 50 MG TAB.ER.24H PO SCH (09:18)
[2016-12-02] MEDS: (Exenatide [Byetta] 5 MCG) SQ SCH (09:19)
[2016-12-02] MEDS: *HR* Metformin 500 MG TABLET PO SCH (09:19)
[2016-12-02] MEDS: Fluticasone Propionate Nasal 50 MCG/SPRAY BOTTLE NS SCH (09:26)
[2016-12-02] MEDS: Pantoprazole 40 MG VIAL IVP SCH (09:28)
== END 2016-12-02 10:30 | disposition home or self-care (01) | DRG 412 ==
LOC: 3ANU
PROVIDERS: ADMIT Surgery; ATTEND Surgery